=== PATIENT | male | born 1985 | race Caucasian/White ===

== ENCOUNTER 2024-02-21 12:40 | Outpatient (REF) | payer MEDICAID, SELFPAY ==
[2024-02-21 13:40] LABS: Erythrocyte Sedimentation Rate 1 MM/HR (0-15)
[2024-02-23 18:03] LABS: Lyme Abs Screen <0.90 index
[2024-02-24 12:43] LABS: Anti Nuclear Antibody Screen POSITIVE (NEGATIVE); Anti Nuclear Antibody Titer 1:40 titer
== END 2024-02-21 12:41 | disposition home or self-care (01) ==
LOC: HO.LAB 12:40
PROVIDERS: PCP Internal Medicine; Visit Provider Psychiatry & Neurology Neurology
DX: I67.9 Cerebrovascular disease, unspecified (principal)
CPT/HCPCS: 36415; 85652; 86038; 86039; 86617; 86618